=== PATIENT | male | born 1985 | race African-American/Black ===

== ENCOUNTER 2019-07-02 15:54 | Emergency (ER) | payer SELFPAY ==
[~2019-07-02] VITALS: Ht 193 cm; Wt 111.1 kg
--- NOTE | 2019-07-02 16:02 | NUR ---
Patient BIB [facility] for c/o right knee pain. Per report patient was attempting to jump over tennis court net and injuried right knee. Patient upon arrival with right knee aircast. Denies hitting head. No distress noted.
[2019-07-02] MEDS ORDERED: MORPHINE SULFATE 4 MG/1 ML DISP.SYRIN ONE (16:04)
[2019-07-02] MEDS ORDERED: ONDANSETRON 4 MG/2 ML VIAL ONE (16:04)
[2019-07-02] MEDS ORDERED: ONDANSETRON 4 MG/2 ML VIAL IV ONE (16:15)
[2019-07-02] MEDS ORDERED: MORPHINE SULFATE 4 MG/1 ML DISP.SYRIN IV ONE (16:15)
--- NOTE | 2019-07-02 16:20 | NUR ---
DR José spoke with Dr Benavidez ortho consult.
[2019-07-02] MEDS ORDERED: HYDROMORPHONE 1 MG/1 ML DISP.SYRIN ONE (16:57)
[2019-07-02] MEDS ORDERED: HYDROMORPHONE 1 MG/1 ML DISP.SYRIN IV ONE (17:00)
--- NOTE | 2019-07-02 17:00 | NUR ---
Crutches dispensed. Pt instructed on proper use of crutches. Patient able to demonstrate correct use of crutches.
--- NOTE | 2019-07-02 17:14 | NUR ---
IV removed. Catheter intact and site benign. Pressure and 4x4 gauze applied to site. No bleeding noted.
--- NOTE | 2019-07-02 17:19 | NUR ---
Patient discharged to home in stable conditon with friends taking patient . Written and verbal after care instructions given. Patient verbalizes understanding of instructions.
[2019-07-02 17:21] VITALS: BP 138/77
== END 2019-07-02 17:22 | disposition home or self-care (01) ==
LOC: ER 15:54
DX: S76.111A Strain of right quadriceps muscle, fascia and tendon, initial encounter (principal); Z88.0 Allergy status to penicillin; W18.39XA Other fall on same level, initial encounter; Y93.73 Activity, racquet and hand sports; Y92.89 Other specified places as the place of occurrence of the external cause; Y99.8 Other external cause status
CPT/HCPCS: 29505; 73564; 96374; 96375; 99283; J1170; J2270; J2405; A4663